=== PATIENT | female | born 1970 | race Caucasian/White ===

== ENCOUNTER 2021-01-19 10:18 | Day surgery (SDC) | payer OTHER ==
[2021-01-18 08:32] LABS: Urine Appearance CLOUDY (Clear); Urine Bilirubin NEGATIVE (Negative); Urine Blood 2+ (Negative); Urine Color YELLOW (Yellow); Urine Glucose NEGATIVE (Negative); Urine Protein NEGATIVE (Negative); Urine pH 5.5 (5.0-7.0)
[2021-01-18 08:33] LABS: Urine Microscopic Reflex ORDER UMIC
[2021-01-18 08:33] LABS: Absolute Lymphocytes (CBC) 2.9 K/uL (0.7-4.9); Basophils % 0.5 % (0-1.3); Hematocrit 40.1 % (36.0-45.0); Lymphocytes % 29.2 % (15.3-44.8); MPV 8.7 fL (7.6-11.3); RBC Red Blood Cell Count 4.62 M/uL (3.86-4.86)
[2021-01-18 08:43] LABS: Urine Bacteria >50 /HPF (<20)
[~2021-01-19 10:18] MED LIST: CEFAZOLIN/SWI 2gm 2 GM/20 ML SYR IVP SCH; Ringers Lactate 1,000 ML IV SCH
[2021-01-19] MEDS ORDERED: Ringers Lactate 1,000 ML IV ONE ×2 (10:55→16:37)
[2021-01-19] MEDS ORDERED: CEFAZOLIN/SWI 1gm 2 GM/20 ML SYR ONE (10:56)
[2021-01-19] MEDS ORDERED: FENTANYL CITR 250 MCG/5 ML ONE (12:49)
[2021-01-19] MEDS ORDERED: LIDOCAINE 1% MPF 5 ML VIAL ONE (12:49)
[2021-01-19] MEDS ORDERED: propofoL 200 MG/20 ML VIAL IV ONE (12:49)
[2021-01-19] MEDS ORDERED: dexAMETHasone 10 MG/ML VIAL ONE (12:49)
[2021-01-19] MEDS ORDERED: MIDAZOLAM HCL 2 MG/2 ML INJ ONE (12:49)
[2021-01-19] MEDS ORDERED: ONDANSETRON 4 MG/2 ML VIAL ONE ×2 (12:50→16:31)
[2021-01-19] MEDS ORDERED: NS 0.9% VIAL 10 ML ONE (12:50)
[2021-01-19] MEDS ORDERED: VECURONIUM 10 MG/VIAL IV ONE (12:54)
[2021-01-19] MEDS ORDERED: BUPIVACAINE 0.25% PF 10 ML VIAL ONE ×3 (13:18→13:20)
[2021-01-19] MEDS ORDERED: KETOROLAC 30 MG/ML INJ ONE ×2 (14:27→16:31)
[2021-01-19] MEDS ORDERED: NEOSTIGMINE 1 MG/ML -5 ML ONE (16:31)
[2021-01-19] MEDS ORDERED: GLYCOPYRROLATE 0.2 MG/ML SYR ONE ×2 (16:31)
[2021-01-19] MEDS ORDERED: IBUPROFEN 200 MG TAB PO PRN (17:01)
[2021-01-19] MEDS ORDERED: HYDROCODONE/APAP 5/325 MG TAB PO PRN (17:01)
[2021-01-19] MEDS ORDERED: PROMETHAZINE INJ 25 MG/ML AMP IV PRN (17:01)
[2021-01-19] MEDS ORDERED: MEPERIDINE HCL 25 MG/ML SYR IM PRN (17:01)
--- NOTE | 2021-01-19 17:05 | P.BOP ---
Preoperative diagnosis: AUB-L Postoperative diagnosis: same uterine prolapse Primary procedure: TLH BS vag morcellation USLS colpopexy cystoscopy Buttermaker Helper: Kellie Dukes Estimated blood loss: 50 Specimen: ut an d tubes Findings: C=0, large myoma, uterine morcellation without cutting into myoma Anesthesia: General Complications: None Drain(s): Other (none) Transferred to: Recovery Room Condition: Good
[2021-01-19 17:41] VITALS: TEMP 97.6
[2021-01-19] MEDS ORDERED: HYDROCODONE/APAP 5/325 MG TAB ONE (18:16)
[2021-01-19 18:38] VITALS: BP 139/77; O2SAT 100
[2021-01-19] MEDS ORDERED: DIPHENHYDRAMINE 25 MG TAB/CAP PO SCH (21:00)
[2021-01-20] MEDS ORDERED: terbinafine HCL 250 MG TAB PO SCH (09:00)
[2021-01-20] MEDS ORDERED: HOME MED 1 EA UNK (Multivitamin [Multivitamin] Tablet) PO SCH (09:00)
[2021-01-20] MEDS ORDERED: LOSARTAN/HCTZ 50-12.5 PO SCH (09:00)
[2021-01-20] MEDS ORDERED: DULOXETINE 30 MG CAP PO SCH (09:00)
== END 2021-01-19 18:44 | disposition home or self-care (01) ==
LOC: OR 10:18
PROVIDERS: ATTEND Obstetrics & Gynecology
PROC: 0UT74ZZ Resection of Bilateral Fallopian Tubes, Percutaneous Endoscopic Approach (ICD-10-PCS; 2021-01-19)
PROC: 0USG7ZZ Reposition Vagina, Via Natural or Artificial Opening (ICD-10-PCS; 2021-01-19)
PROC: 0UT94ZZ Resection of Uterus, Percutaneous Endoscopic Approach (ICD-10-PCS; principal; 2021-01-19 11:30)
DX: N93.9 Abnormal uterine and vaginal bleeding, unspecified (principal); D25.9 Leiomyoma of uterus, unspecified
CPT/HCPCS: 85025; 36415; 86900; 86850; 81025; 86901; 88307; 58573; 57283; J2704; J2250; J3010; J1100; J2710; J0690; J7120 ×2; J2405 ×2; 81003; 81015